=== PATIENT | female | born 1950 | race Caucasian/White ===

== ENCOUNTER 2017-10-31 03:51 | Emergency (ER) | payer SELFPAY ==
[2017-10-31 03:54] VITALS: BP 109/49
--- NOTE | 2017-10-31 04:41 | ER Report ---
History and Physical Time Seen By MD: 03:50 Hx. of Stated Complaint: EMS WAS CALLED BY [employer] HISTOLOGY TECHNICIAN ABOUT THIS PATIENT; PATIENT WANTED THE HISTOLOGY TECHNICIAN TO CALL EMS BECAUSE SHE WANTED AN AMBULANCE AND HISTOLOGY TECHNICIAN STATES THAT SHE HAD BEEN ACTING WERID; EMS STATES THAT WHEN SHE WALKED TO THE AMBULANCE WITH AN UNSTEADY GAIT AND HER PUPILS WERE [place] HPI/ROS CHIEF COMPLAINT: Altered mental status HISTORY OF PRESENT ILLNESS: 67-year-old female brought in by EMS from the [facility] with altered mental status. Patient requested that the transit bus operator call EMS to bring her to the hospital. Patient ambulated from the bus. She was 1 cooperative EMS. She was uncooperative on arrival here. She appeared to be feigning unconsciousness. Her corneal reflexes were intact. HEENT very agitated with sternal rub to arouse her with painful stimuli. She began to swelling and nursing staff with fists. She was told that not hit any staff members. Her she would be going to alf for assault. She yelled out," then send me to alf". Patient appears to have full range of motion of all extremities. No signs of head trauma. Patient's refusing to cooperate to perform any evaluations or treatment. Initial set of vital signs obtained before she became agitated. REVIEW OF SYSTEMS: Unable to obtain Unable To Obtain Past Medical: Refused Reviewed Nurses Notes: Yes Constitutional Vital Sign - Last 24 Hours 10/31/17 10/31/17 03:51 03:54 Temp 98.2 Pulse 85 82 Resp 20 B/P (MAP) 109/49 (69) 109/49 Pulse Ox 93 94 O2 Delivery Room Air Physical Exam Vital signs stable, afebrile, pulse ox normal General Appearance: The patient is alert, has no immediate need for airway protection and no current signs of toxicity. No signs of head trauma Eyes: Would not open eyes Respiratory: Chest is non tender, lungs are clear to auscultation. Cardiac: regular rate and rhythm, no murmur Gastrointestinal: Abdomen is soft and non tender, no masses, bowel sounds normal. Musculoskeletal: Neck: Neck is supple and non tender. Extremities have full range of motion and are non tender., 1+ edema bilaterally Skin: No rashes or lesions. DIFFERENTIAL DIAGNOSIS: After history and physical exam differential diagnosis was considered for altered mental status including but not limited to hypoglycemia, infectious process, electrolyte abnormality, head injury and intoxicants. Medical Decision Making ED Course/Re-evaluation ED Course Patient was minute to an examination room by EMS. H&P was done. Patient was verbally agitated and refused to cooperate for examination. She was refusing all care. Police were involved at the scene of the bus where she stormed off the [employer] bus stating she wanted to lay down. Patient appears very angry. There are no indications of a stroke or intoxication. Patient's released to the police to be returned to a hotel. Since she is seeking no care and refusing to cooperate. Decision to Disposition Date: Oct 31, 2017 Decision to Disposition Time: 04:40 Depart Departure Latest Vital Signs Vital Signs Date Time Temp Pulse Resp B/P (MAP) Pulse Ox O2 Delivery O2 Flow Rate FiO2 10/31/17 03:54 98.2 82 20 109/49 94 Room Air Impression: Primary Impression: Altered mental status, unspecified Additional Impression: Agitation Condition: Improved Disposition: AGAINST MED ADV / DISCONT CARE Departure Forms: Medications Reconciliation, Patient Portal Information, ER Transition Record Patient Instructions: GENERAL ER DISCHARGE INSTRUCTIONS Problem Qualifiers Primary Impression: Altered mental status, unspecified Altered mental status type: unspecified Qualified Codes: R41.82 - Altered mental status, unspecified IGLESIA HEBERT DO Oct 31, 2017 04:40
== END 2017-10-31 04:48 | disposition left against medical advice (07) ==
LOC: ER 03:59 → EDBD 03:59 → ER 04:48
DX: R41.82 Altered mental status, unspecified (principal); R45.1 Restlessness and agitation
CPT/HCPCS: 99281

== ENCOUNTER → 2017-10-31 | Outpatient (CLI) | payer SELFPAY | LOC: AMB 03:32 | PROVIDERS: ATTEND Nurse Practitioner | DX: R40.4 Transient alteration of awareness (principal); R41.0 Disorientation, unspecified | CPT/HCPCS: A0425; A0429 ==